=== PATIENT | female | born 1950 | race Caucasian/White ===

== ENCOUNTER 2018-03-06 23:08 | Emergency (ER) | payer OTHER ==
[~2018-03-06] VITALS: Ht 160 cm; Wt 45.4 kg
[2018-03-06 23:18] VITALS: Ht 160 cm; Wt 45.4 kg
[2018-03-07 00:49] VITALS: BP 120/55
== END 2018-03-07 01:22 | disposition home or self-care (01) ==
LOC: ED 23:08
DX: G50.0 Trigeminal neuralgia (principal); M19.90 Unspecified osteoarthritis, unspecified site; E03.9 Hypothyroidism, unspecified; Z90.710 Acquired absence of both cervix and uterus; Z98.890 Other specified postprocedural states; Z91.048 Other nonmedicinal substance allergy status
CPT/HCPCS: J1885

== ENCOUNTER 2018-03-09 22:20 | Emergency (ER) | payer OTHER ==
[~2018-03-09] VITALS: Ht 160 cm; Wt 45.4 kg
[2018-03-09 23:00] VITALS: Ht 160 cm; Wt 45.4 kg
[2018-03-10 01:11] VITALS: BP 118/65
== END 2018-03-10 01:11 | disposition home or self-care (01) ==
LOC: ED 22:20
DX: G50.0 Trigeminal neuralgia (principal); G35 Multiple sclerosis; I10 Essential (primary) hypertension; E03.9 Hypothyroidism, unspecified; Z88.8 Allergy status to other drugs, medicaments and biological substances; Z91.018 Allergy to other foods
CPT/HCPCS: J2270; J3010; Q0162